=== PATIENT | male | born 1975 | race Caucasian/White ===

== ENCOUNTER → 2017-04-14 11:08 | Outpatient (CLI) | payer OTHER, SELFPAY ==
[2017-04-14 14:25] LABS: Alanine Aminotransferase 38 U/L (12-78); Albumin/Globulin Ratio 1.3 (1.1-1.8); Alkaline Phosphatase 57 U/L (46-116); Anion Gap 12.2 mEq/L (5-15); Aspartate Amino Transferase 33 U/L (15-37); Bilirubin,Total 0.2 mg/dL (0.2-1.0); Blood Urea Nitrogen 7 mg/dL (7-18); Calcium 9.1 mg/dL (8.5-10.1); Carbon Dioxide 27 mmol/L (21.0-32.0); Chloride 107 mmol/L (98-107); Chol/HDL Ratio 3.4 (1-3.5); Cholesterol 134 mg/dL (140-200); Creatinine,Serum 1.21 mg/dL (0.70-1.30); Estimated Glomerular Filt Rate 66 ml/min (>60); GFR (African American) 80 ML/MIN (>60); Globulin 3.1 gm/dl (1.3-3.2); Glucose 103 mg/dL (74-106); HDL Cholesterol 39 mg/dL (27-67); LDL Cholesterol 66 mg/dL (0-130); Potassium 4.2 mmoL/L (3.5-5.1); Sodium 142 mmol/L (136-145); Thyroid Stimulating Hormone 3.23 uIU/ml (0.358-3.740); Total Protein,Serum 7.1 gm/dL (6.4-8.2); Triglycerides 147 mg/dL (30-200); VLDL Cholesterol 29 mg/dL (0-40)
[2017-04-14 15:09] LABS: Basophils # 0.1 K/mm3 (0-0.2); Basophils % 0.6 % (0.1-2.0); Eosinophils # 0.1 K/mm3 (0.0-0.4); Eosinophils % 1.2 % (0.1-12.0); Hematocrit 52.2 % (42.0-52.0); Lymphocytes # 2.5 K/mm3 (0.7-4.5); Lymphocytes % 30.3 K/mm3 (10-50); Mean Corpuscular HGB Conc 32.6 g/dL (31.8-35.4); Mean Corpuscular Hemoglobin 30.9 pg (27.0-31.2); Mean Corpuscular Volume 94.9 fl (80-94); Mean Platelet Volume 9.1 fl (7.4-10.4); Monocytes # 0.4 K/mm3 (0.1-1.0); Neutrophils # 5.2 K/mm3 (1.8-7.8); Neutrophils % 62.9 % (37.0-80.0); Platelet Count 206 K/mm3 (142-424); Red Cell Distribution Width 12.9 % (11.5-17.5); White Blood Count 8.3 K/mm3 (4.8-10.8)
[2017-04-14 16:55] LABS: INR 1.52 (0.9-1.1); Prothrombin Time 16.5 seconds (9.4-11.8)
== END ==
PROVIDERS: PCP Nurse Practitioner Family; Visit Provider Nurse Practitioner Family
DX: E78.1 Pure hyperglyceridemia (principal); I10 Essential (primary) hypertension; C73 Malignant neoplasm of thyroid gland; D68.59 Other primary thrombophilia; Z79.01 Long term (current) use of anticoagulants; Z86.711 Personal history of pulmonary embolism
CPT/HCPCS: 36415; 80053; 80061; 84443; 85025; 85610

== ENCOUNTER → 2018-10-30 08:18 | Outpatient (CLI) | payer BC, SELFPAY ==
[2018-10-30 14:44] LABS: INR 2.61 (0.9-1.1); Prothrombin Time 25.9 seconds (9.4-11.8)
== END ==
PROVIDERS: PCP Internal Medicine Adolescent Medicine; Visit Provider Internal Medicine Adolescent Medicine
DX: Z86.711 Personal history of pulmonary embolism (principal)
CPT/HCPCS: 36415; 85610

== ENCOUNTER 2024-04-12 07:48 | Day surgery (SDC) | payer BC, SELFPAY ==
[2024-04-10 12:26] VITALS: BMI 23.0
[2024-04-12 08:03] VITALS: BP 133/78; PULSE 81; RESP 18; TEMP 36.4; O2SAT 95
[2024-04-12] MEDS: LACTATED RINGERS 1000ML 1,000 ML 25 ML IV (08:11)
[2024-04-12 08:58] VITALS: O2SAT 97
[2024-04-12 10:03] VITALS: BP 99/67; PULSE 69; RESP 15; TEMP 36.2; O2SAT 94
--- NOTE | 2024-04-12 10:03 | P.PCN_ITS ---
Procedure: Date: 04/12/24 Patient Date of :: 1975 Procedure Performed:: Total colonoscopy to terminal ileum with multiple polypectomy . Indications:: Patient is a 48-year-old who presents for initial screening colonoscopy. No family history of colon cancer. Some family history of polyps. . Performing Provider:: Jose Meeks MD . Referring Provider:: James Jenkins MD . Sedation:: MAC sedation . Procedure:: Patient history was obtained and appropriate physical examination was performed. Patient's medications and allergies were reviewed. Informed consent was obtained after explaining the benefits, alternatives, and risks of the procedure including, but not limited to, bleeding, perforation, missed lesions, and adverse reaction to anesthesia medications. Patient was transported to endoscopy procedure room. Patient was connected to monitoring devices. Throughout the procedure the patient's blood pressure, pulse, and oxygen saturations were monitored continuously. Patient identif ication and planned procedure were verified by the staff. Patient was positioned in lateral decubitus position. Digital anorectal exam was performed. Variable stiffness Olympus colonoscope was inserted and advanced under direct visualization to the cecum. Adequacy of the colonic preparation was noted. The colonoscope was advanced a short distance into the terminal ileum. The colonoscope was then slowly withdrawn while carefully examining the color, texture, anatomy, and integrity of the mucosoa circumferentially. Within the rectum retroflexion was performed. Colonoscope was then withdrawn. Impression: There was some particulate liquid stool which was most pronounced in the right colon. Upon advancement of the colonoscope in the transverse colon there was a adenomatous appearing polyp removed with cold snare. Colonoscope was then advanced to the cecum. High-volume trans colonoscopic irrigation and suctioning was performed which allowed for decent visualization. Terminal ileum was normal. Colonoscope was withdrawn and at the proximal transverse colon there was a moderate polyp. Plan was for removal with hot snare however the hot snare cut through the polyp at its base. Polypectomy base was then removed in a piecemeal fashion using biopsy forceps. Initially the polyp was unable to be definitively retrieved and repeated reinsertion and withdrawal of the colonoscop e did not initially identify the polyp. Ultimately the majority of the polyp was likely retrieved and sent with the specimens in the descending polyp location. When the colonoscope was reinserted for potential retrieval of the polypectomy there was noted to be a small adenomatous polyp in the ascending colon removed with cold snare. In the descending colon there was a moderately large pedunculated polyp removed with hot snare. There was a small adenomatous polyp removed with cold snare. At this time the patient did have some coughing and the colonoscope was withdrawn temporarily. Coughing then resolved and the colonoscope was reinserted to the descending colon site. There was a moderately large polyp removed with hot snare. These larger polyps required maceration with [place] net for retrieval. As the colonoscope was withdrawn near the rectosigmoid region there is likely a hyperplastic polyp. This was biopsied with cold biopsy forceps to assure hyperplastic nature. . Findings:: Numerous polyps as noted above, many complex adenomatous. Total of at least 7 polyps removed. . Recommendations:: Repeat colonoscopy pending pathology. Likely 1 to 2 years given the complex large adenomatous polyps. If the rectosigmoid polyp is adenomatous recommend repeat colonoscopy within a year. . Complications:: None immediately apparent . Estimated blood obtained (mL): 2 Colonoscopy Component Colonoscopy Component Was a colonoscopy performed during today's procedure?: Yes Recommended follow up colonoscopy of at least 10 years?: No If no, follow up colonoscopy recommended in ___ years?: 1-2 Reason for not recommending >/= 10 yr follow-up interval?: See above
[2024-04-12 10:13] VITALS: BP 105/65; PULSE 63; RESP 16; O2SAT 96
[2024-04-12 10:23] VITALS: BP 130/82; PULSE 68; RESP 16; O2SAT 98
[2024-04-12 10:33] VITALS: BP 136/83; PULSE 67; RESP 16; O2SAT 98
--- NOTE | 2024-04-12 10:35 | P.PNANES_ITS ---
[facility] Disclaimer: The information contained in this section may have been updated after the patient was seen, as this information can be updated by other users. Medical History Hx of supraventricular tachycardia History of thyroid cancer Surgical History History of incision and drainage History of thyroidectomy Family History Other Family history of SD (myocardial infarction) Family history of diabetes mellitus Family history of prostate cancer in father Social History (Updated 04/12/24 @ 08:10 by Sandy Munoz RN) Smoking Status: Current every day smoker alcohol intake: current substance use type: denies use current occupational status: employed Travel in the last 8 weeks: None caffeine: Yes [facility] Anesthesia Checklist Patient Identification Patient Identification: Verbal (Name & ) Structural Data Admitted From: Home Planned Operative Procedure/s: colonoscopy Consent for Planned Operative Procedure(s) Verified: Yes NPO Status Verified Time NPO: 00:00 Airway Assessment Mallampati Score:: Class II C-Spine Mobility Assessed: Yes TMJ Mobility Assessed: Yes Dentition: Good Dentition Neurological Assessment Level of Consciousness: Awake, Alert and Appropriate Anesthesia Plan Anesthesia Risk discussed: Yes Anesthesia Plan: Verified ASA Class: II Anesthesia Type: MAC
== END 2024-04-12 10:40 | disposition home or self-care (01) ==
PROVIDERS: PCP Internal Medicine Adolescent Medicine; Visit Provider Surgery
PROC: 0DJD8ZZ Inspection of Lower Intestinal Tract, Via Natural or Artificial Opening Endoscopic (ICD-10-PCS; CPT 45380; principal; 2024-04-12 09:30)
DX: K63.5 Polyp of colon (principal); Z83.719 Family history of colon polyps, unspecified; Z12.11 Encounter for screening for malignant neoplasm of colon
CPT/HCPCS: 45380; 45385; J2704; J7120